=== PATIENT | male | born 1985 | race Asian ===

== ENCOUNTER 2016-12-05 23:03 | Emergency (ER) | payer OTHER | END 2016-12-05 23:47 | disposition home or self-care (01) | LOC: SED 23:03 | DX: L03.115 Cellulitis of right lower limb (principal); S80.861A Insect bite (nonvenomous), right lower leg, initial encounter; W57.XXXA Bitten or stung by nonvenomous insect and other nonvenomous arthropods, initial encounter | CPT/HCPCS: 99283 ==